=== PATIENT | male | born 1970 | race Two or more races ===

== ENCOUNTER → 2020-05-15 | Emergency (ER) | payer OTHER ==
[~2020-05-15] VITALS: Ht 177.8 cm; Wt 79.4 kg
[~2020-05-15] MED LIST: HYDROcodone-ACET 10/325MG TAB PO ONE
[2020-05-15 17:24] VITALS: BP 136/92
== END | disposition home or self-care (01) ==
LOC: ER 14:12
DX: M62.838 Other muscle spasm (principal); M25.562 Pain in left knee; M25.561 Pain in right knee; M54.2 Cervicalgia; M54.5 Low back pain; W11.XXXA Fall on and from ladder, initial encounter; Y93.89 Activity, other specified; Y99.0 Civilian activity done for income or pay; Y92.69 Other specified industrial and construction area as the place of occurrence of the external cause
CPT/HCPCS: 72040; 72100; 73562; 73590

== ENCOUNTER 2024-04-28 07:17 | Day surgery (SDC) | payer MEDICAID ==
[2024-04-26 15:29] LABS: Urine Bacteria None Seen /hpf (None Seen)
[2024-04-26 15:52] LABS: Urine Blood Negative /uL (Negative); Urine Clarity Clear (Clear); Urine Color Light-Yellow (Yellow); Urine Protein, UAD Negative (Negative); Urine Urobilinogen Normal (Negative); Urine WBC 1 /hpf (0 - 3); Urine pH 5.5 (5.0-9.0)
[2024-04-26 16:12] LABS: INR 1.05 (0.9-1.15); Partial Thromboplastin Time 26.5 SEC (24.5-34.5); Prothrombin Time 11.1 sec (9.3-11.8)
[2024-04-26 16:16] LABS: Alanine Aminotransferase 13 U/L (7-40); Albumin 4.3 g/dL (3.2-4.8); Alkaline Phosphatase 103 U/L (46-116); Anion Gap 4 (5-15); Aspartate Aminotransferase 12 U/L (13-40); BUN/Creatinine Ratio 9.2 (10.0-20.0); Bilirubin, Total 0.4 mg/dL (0.2-1.0); Blood Urea Nitrogen 8 mg/dL (9-23); Calcium 9.3 mg/dL (8.7-10.4); Carbon Dioxide 27 mmol/L (20-30); Chloride 108 mmol/L (98-107); Glucose 86 mg/dL (74-106); Potassium 3.7 mmol/L (3.5-5.1); Sodium 139 mmol/L (136-145); Total Protein 7.7 g/dL (5.7-8.2)
[2024-04-26 16:17] LABS: Basophils # (auto) 0 10 ^3/uL (0-0.2); Basophils % (auto) 0.4 % (0.0-2.0); Eosinophils # (auto) 0.4 10 ^3/uL (0-0.8); Eosinophils % (auto) 4.2 % (0.0-7.0); Hematocrit 43.2 % (41.0-53.0); Hemoglobin 15.3 g/dL (13.5-17.5); Lymphocytes # (auto) 2.1 10 ^3/uL (0.4-5.4); Lymphocytes % (auto) 24.3 % (10.0-50.0); Mean Corpuscular Hemoglobin 31.6 pg (28.0-32.0); Mean Corpuscular Hgb Conc. 35.3 g/dL (32.0-36.0); Mean Corpuscular Volume 89.4 fL (80.0-100.0); Monocytes # (auto) 0.6 10 ^3/uL (0-1.3); Monocytes % (auto) 6.6 % (0.0-12.0); Neutrophils # (auto) 5.6 10 ^3/uL (1.6-8.6); Neutrophils % (auto) 64.5 % (37.0-80.0); Platelet Count (auto) 189 10^3/uL (140-450); Red Blood Cells 4.84 10^6/uL (4.5-5.90); Red Cell Distribution Width 13.7 % (11.8-14.3); White Blood Cell 8.7 10^3/uL (4.4-10.8)
[~2024-04-28] VITALS: Ht 177.8 cm; Wt 78.0 kg
[~2024-04-28 07:17] MED LIST changes: +ACCU-CHEK COMFORT CURVE STRIP VI ONE; -HYDROcodone-ACET 10/325MG TAB PO ONE; +HYDROmorphone HCL 2 MG/ML VL/or syr IV PRN; +KETOROLAC TROMETH 30 MG/ML 1ML VIAL IV ONE; +LISI20TA56 PO; +METF-489 PO; +METOCLOPRAMIDE HCL 5MG/ml INJ 2ml VIAL IV ONE; +MORPHINE SULFATE INJ 2 MG/ml SYRG IV PRN
[2024-04-28] MEDS ORDERED: LIDOCAINE VISCOUS 2% 15ML UD ONE (07:51)
[2024-04-28] MEDS ORDERED: MIDAZOLAM HCL 2MG/2ML 2ml VIAL (1mg/ml) ONE (07:56)
[2024-04-28] MEDS ORDERED: fentaNYL CITRATE 100 MCG/2 ML VL ONE (07:56)
[2024-04-28] MEDS ORDERED: KETAMINE 50mg/ML 10ml Vial 10 ML ONE (07:56)
[2024-04-28] MEDS ORDERED: PROPOFOL 10 MG/ML 20 ML IV ONE (07:57)
[2024-04-28] MEDS ORDERED: SODIUM CHLORIDE LOCK 10 ML ONE (07:57)
[2024-04-28] MEDS ORDERED: LIDOCAINE 1% INJ PF 5ML AMP ONE (07:57)
[2024-04-28] MEDS ORDERED: ONDANSETRON HCL 4 MG/2 ML VIAL ONE (07:57)
[2024-04-28] MEDS: LIDOCAINE VISCOUS 2% 15ML UD MT ONE (08:11)
[2024-04-28 08:26] VITALS: PULSE 85; RESP 16; TEMP 97.4; O2SAT 97
[2024-04-28 08:48] VITALS: BP 145/96; PULSE 70; RESP 14; O2SAT 97
== END 2024-04-28 09:06 | disposition home or self-care (01) ==
LOC: GI 07:17
PROVIDERS: ATTEND Internal Medicine Gastroenterology
DX: R13.10 Dysphagia, unspecified (principal); K29.50 Unspecified chronic gastritis without bleeding; B96.81 Helicobacter pylori [H. pylori] as the cause of diseases classified elsewhere; K44.9 Diaphragmatic hernia without obstruction or gangrene; K22.2 Esophageal obstruction; K20.90 Esophagitis, unspecified without bleeding; E11.9 Type 2 diabetes mellitus without complications; Z79.84 Long term (current) use of oral hypoglycemic drugs
CPT/HCPCS: 36415; 43233; 43239; 80053; 81001; 82962; 85025; 85610; 85730; 88305; 88312; 88342; J2250; J2405; J2704; J3010; J7030